=== PATIENT | female | born 1995 | race Caucasian/White ===

== ENCOUNTER 2018-11-21 13:44 | Emergency (ER) | payer OTHER, SELFPAY ==
[2018-11-21 13:45] VITALS: BP 140/69; PULSE 85; RESP 16; TEMP 36.8; O2SAT 99; BMI 40.8
--- NOTE | 2018-11-21 14:05 | ED.DCSUM_ITS ---
- ER Visit Summary Date of Service: 11/21/18 Chief Complaint: Vaginal bleeding History of Present Illness: The patient is a 23 F who presents with vaginal bleeding that has been constant for the past month but became worse today. Patient states the bleeding is severe today. Patient states she is going thr ough approximately 3-4 pads or tampons per hour. Patient denies any lightheadedness or dizziness. Patient denies any abdominal or pelvic pain. Patient states she just has some discomfort. Patient denies any dysuria but admits to some hematuria. Patient denies any back pain. Physical Examination: Vital signs are stable. Patient is afebrile. Patient is in no acute distress. Oral mucosa is pink and moist. Neck is supple. Trachea is midline. There is no JVD noted. Heart was regular rate and rhythm. Lungs are clear and equal bilateral. Abdomen is soft. Bowel sounds are normal. There is no tenderness. There is no guarding noted. Skin is warm dry. Cranial nerves II through XII are intact. There are no focal motor or sensory deficits noted. The remaining physical exam is within normal limits. Test Results: CBC shows a slight anemia with a hemoglobin of 11.7. Basic metabolic profile was normal. Urinalysis shows occult blood of 250 and greater than 100 red blood cells. There is no sign of urinary tract infection. Emergency Department Course and Treatment: She was advised of her lab results. Patient was instructed to follow-up with her [employer]. Patient was given prescriptions for Naprosyn and Provera. Patient was instructed to return if worse in any way. Patient and her family understood and were agreeable with the plan. All questions were answered. Disposition: Discharge home Impression: Menorrhagia This note was generated with [employer] dictation software. It may contain incorrect words, spelling, and punctuation that were not noted in review of the chart prior to signing ED Disposition - Plan for ED Patient: Disposition: Home or Assisted Living Diagnosis: Menorrhagia Instructions: ED Bleeding Menstrual Heavy Prescriptions: Medroxyprogesterone Acetate [Provera] 5 mg PO DAILY #5 tab Naproxen [Naprosyn] 500 mg PO BID PRN #20 tab Referrals: [facility] Doctor,Out of [NON-STAFF] - 3-5 Days
[2018-11-21 14:23] VITALS: BP 132/72; BP 142/74; BP 143/7; PULSE 86; PULSE 89; PULSE 95
[2018-11-21 14:23] LABS: Absolute Lymphocyte Count 2.91 X10^3/ul (0.83-4.51); Absolute Neutrophil Count 8.7 X10^3/uL (2.0-7.7); Basophil# 0.02 X10^3/uL; Basophil% 0.2 % (0-1); Eosinophils% 1.6 % (0-5); Hematocrit 37.9 % (37-47); Hemoglobin 11.7 g/dl (12.0-15.0); Lymphocyte # 2.91 X10^3/ul (4.0); Lymphocyte % 23.3 % (19-41); Mean Corp Hgb Conc 30.9 g/gl (32-36); Mean Corpuscular Hgb 24.7 pg (27.0-32.0); Mean Corpuscular Volume 80.1 fL (81-99); Mean Platelet Vol. 10.4 fl (6.2-12.0); Monocyte# 0.66 X10^3/uL; Monocyte% 5.3 % (0-10); Neutrophil # 8.66 X10^3/uL (2.7-7.7); Neutrophil % 69.3 % (47-70); Platelet Count 335 K/mm3 (150-450); RBC Distribution Width CV 14.9 % (11.6-14.6); RBC Distribution Width SD 42.6 fl (35.1-43.9); Red Blood Count 4.73 M/mm3 (4.2-5.4); White Blood Count 12.5 K/mm3 (4.4-11.0)
[2018-11-21 14:24] LABS: POSITIVE COUNT NO; POSITIVE DIFFERENTIAL NO; POSITIVE MORPHOLOGY NO
[2018-11-21 14:36] LABS: Anion Gap 8 (5-15); BUN 8 mg/dL (7-18); BUN/Creat Ratio 11.3 RATIO (10-20); Calcium,Total 8.5 mg/dL (8.5-10.1); Chloride 107 mmol/L (98-107); Creatinine, Serum 0.71 mg/dL (0.55-1.02); EST Glomerular Filtration Rate 107 mL/min (>60); Est Glom Filt Rate - Afr Amer 130 mL/min (>60); Estimated Creatinine Clearance 109.94 ml/min; Glucose 80 mg/dL (74-106); Potassium 3.5 mmol/L (3.5-5.1); Sodium Level 142 mmol/L (136-145)
[2018-11-21 14:42] LABS: Pregnancy, Serum, hCG Quali. NEGATIVE Negative (0-9 Nonpreg)
[2018-11-21 14:47] LABS: Bacteria 0 SEEN /hpf (None Seen); Mucous, Urine 0 SEEN /hpf (<or=2+); Squamous Epithelial Cells - UA 0 SEEN /hpf (5-10)
[2018-11-21 14:48] LABS: Color, Urine Yellow (Yellow); Glucose, Dipstick Normal (Normal); Ketone-Dipstick Negative (Negative); Leukocyte Esterase-Dipstick 25 /ul (Negative); Nitrite-Dipstick Negative (Negative); Occult Blood-Urine 250 /ul (Negative); Protein-Dipstick 15 mg/dl (Negative); Urine Bilirubin Dipstick Negative (Negative); Urine Clarity Clear (Clear); Urine Urobilinogen Normal (Normal)
[2018-11-21 14:59] LABS: Red Blood Cells-Urine > 100 SEEN /hpf (0-5); White Blood Cells 0-5 SEEN /hpf (0-5)
[2018-11-21 15:52] VITALS: BP 156/82; PULSE 10; PULSE 108; RESP 20; O2SAT 99
== END 2018-11-21 16:01 | disposition home or self-care (01) ==
PROVIDERS: Emergency Provider Emergency Medicine
DX: N92.0 Excessive and frequent menstruation with regular cycle (principal)
CPT/HCPCS: 80048; 81001; 84703; 85025; 99285; A4216

== ENCOUNTER 2021-08-24 14:35 | Emergency (ER) | payer BC, MEDICAID, SELFPAY ==
[2021-08-24 14:36] VITALS: BP 130/78; PULSE 136; RESP 20; TEMP 37.6; O2SAT 91; BMI 40.2
--- NOTE | 2021-08-24 15:40 | CT_ITS ---
STUDY: CTA CHEST REASON FOR EXAM: Female, 26 years old. Covid, hypoxia, evaluate for pulmonary embolus RADIATION DOSAGE (If Supplied By Facility): CTDIvol = ( 12.66 ) mGy, DLP = ( 442.00 ) mGycm TECHNIQUE: The examination was performed with the intravenous administration of IV 100mL Isovue-300. Post-processing of the angiographic images was performed, with multiplanar reformation and 3D reconstruction. Individualized dose optimization techniques were used for this CT. COMPARISON: None. FINDINGS: Normal enhancement of the main pulmonary artery and right and left pulmonary arteries. Normal enhancement of the bilateral peripheral pulmonary arteries. There is no demonstrated pulmonary embolism. Normal thoracic aorta and visualized great vessels. There is no demonstrated aortic dissection. Normal heart and pericardium. Normal mediastinum. Normal hilar regions. Normal visualized trachea and bronchi. The lungs are well expanded. Bilateral patchy groundglass opacities consistent with moderate subsegmental atelectasis or pneumonitis. Normal pleura. Normal chest wall structures. Normal osseous structures. Normal visualized upper abdomen. CT/CTA Chest W/WO Contrast IMPRESSION: 1. No CT evidence of pulmonary embolism. 2. Moderate bilateral subsegmental atelectasis or pneumonitis. Commonly reported imaging features of Cobra 19 pneumonia are present. Other processes such as influenza pneumonia and organizing pneumonia as can be seen in drug toxicity or connective tissue disease can cause a similar imaging pattern. Electronically Signed: Torsten Alonso MD at 17:03 EST Tel , Service support ,
--- NOTE | 2021-08-24 15:41 | EKG12_ITS ---
Test Reason : SOB Blood Pressure : / mmHG Vent. Rate : 111 BPM Atrial Rate : 111 BPM P-R Int : 138 ms QRS Dur : 082 ms QT Int : 306 ms P-R-T Axes : 014 016 022 degrees QTc Int : 416 ms Sinus tachycardia Otherwise normal ECG Confirmed by TULIO RODRIGUEZ, GARTH ([id number]), editor dictionary NETTE FONSECA ([id number]) on 08/27/2021 9:17:54 AM Referred By: CAMMY Confirmed By:GARTH ANTUNEZ MD
--- NOTE | 2021-08-24 15:42 | ED.VIS.DYS ---
HPI History of Present Illness Chief Complaint: Shortness of Breath Informant: patient Narrative Narrative: Patient presents with slightly worsening dyspnea and low O2 saturation at home with known Covid. She started with her Covid symptoms on the 11th of this month. Her symptoms include all of them. I am able to get that she has cough, dyspnea myalgias fever. She also has had nausea and vomiting. She has not been having diarrhea although she had this earlier. She states she is not eating and drinking much. Most of this is due to her lack of interest in food. However, she states is not uncommon she will throw up about 2 hours after eating. No blood has been seen. She has not had hemoptysis. She was treated with antibiotics by somebody recently. She is not on them now. She also has a history of asthma. She has been using inhaler but it does not help her breathing. She has no family or personal history of DVT or PE. No leg swelling. PFSH PFSH Home Medications medroxyprogesterone 5 mg PO DAILY #5 tab 11/21/18 [Rx Last Taken Unknown] naproxen 500 mg PO BID PRN #20 tab 11/21/18 [Rx Last Taken Unknown] Vitamin D (with calcium) 08/24/21 [History Last Taken Unknown] Zoloft 200 mg PO/SL DAILY 08/24/21 [History Last Taken Unknown] albuterol 08/24/21 [History Last Taken Unknown] gabapentin 900 mg PO/SL TID 08/24/21 [History Last Taken Unknown] rituximab 08/24/21 [History Last Taken Unknown] Allergy/AdvReac Type Severity Reaction Status Date / Time cephalexin [From [facility]] Allergy Hives Verified 08/24/21 14:36 Social History Smoking Status: Never smoker [facility] [place] ED Constitutional Constitutional ED: Reports chills, fever(s) and weight loss Eyes Eyes: Denies blurry vision ENT ENT ED: Reports rhinorrhea and sore throat Cardiovascular Cardiovascular: Denies chest pain or palpitations Respiratory/Chest Respiratory/Chest: Reports cough, dyspnea and dyspnea on exertion; Denies sputum Gastrointestinal Gastrointestinal: Reports nausea and vomiting; Denies abdominal pain or diarrhea Genitourinary Genitourinary ED: Denies dysuria Musculoskeletal Musculoskeletal: Reports myalgias Integumentary Denies rash Neurologic Neurologic: Denies headache(s), paresthesias or weakness Psychiatric Psychiatric: Reports anxiety and depression Endocrine Endocrinology: Denies polydipsia or polyuria Hematologic/Lymphatic Hematologic/Lymphatic: Denies easy bleeding or easy bruising Allergic/Immunologic Allergic/Immunologic ED: Denies urticaria EXAM Physical Exam Const Vital Signs: 08/24/21 14:36 08/24/21 15:19 08/24/21 16:20 Temperature 99.7 F H Temperature Source Temporal Pulse Rate 136 H 116 H Respiratory Rate 20 H 17 Respiratory Pattern Normal Normal Blood Pressure 130/78 H Blood Pressure Mean 95 Pulse Ox 91 Oxygen Delivery Method Room Air Patient does look a bit tired. But she does not look dyspneic at this time. Saturations are about 91 to 92% on room air on the monitor. Heart rate currently is about 114. Positive well nourished, well developed and obese General Appearance ED: well developed and NAD Nutritional Appearance: obese HEENT Reports dry mucous membranes atraumatic Mouth ED: Yes dry mucous membranes Mouth: dry mucous membranes Eyes General Eye ED: Negative for pale conjunctiva or scleral icterus Neck no JVD Resp Auscultation: rhonchi; Negative for wheezes Cardio regular rate and regular rhythm GI non-tender and non-distended Palpation: soft Back/Spine no CVA tenderness and normal to inspection Extremity normal to inspection General Extremety ED: Negative for edema or tenderness General Extremity: Negative for edema Neuro oriented x3 Sensorium / Orientation: alert Psych Psych Narrative: Mildly flat affect. Skin Rashes: no rashes MDM MDM Lab Data Attestation: I reviewed the patient's lab results. Labs: Laboratory Results - last 24 hr 08/24/21 08/24/21 16:07 16:07 WBC 4.8 RBC 5.21 Hgb 12.3 Hct 39.0 MCV 74.9 L MCH 23.6 L MCHC 31.5 L RDW Std Deviation 43.8 RDW Coeff of Kaela 16.1 H Plt Count 219 MPV 10.8 Immature Gran % (Auto) 0.800 Neut % (Auto) 70.2 H Lymph % (Auto) 18.6 L [place] % (Auto) 9.6 Eos % (Auto) 0.6 Baso % (Auto) 0.2 Absolute Neuts (auto) 3.4 Absolute Lymphs (auto) 0.89 Nucleated RBC % 0 Sodium 137 Potassium 3.1 L Chloride 104 Carbon Dioxide 25.0 Anion Gap 8 BUN 12 Creatinine 0.94 Estim Creat Clear Calc 80.89 Est GFR (MDRD) Af Amer 92 Est GFR (MDRD) Non-Af 76 BUN/Creatinine Ratio 12.8 Glucose 115 H Calcium 8.2 L EKG Initial EKG: Comments: EKG done for tachycardia and read by me shows sinus rhythm with tachycardic rate at 111. No ventricular ectopy. No acute ST elevation or depression. MI interval, QRS duration and QTc are normal. Discharge Plan Triage Chief Complaint: Shortness of Breath Other Complaint: Fever ED Provider: Marcus Finley Dx/Rx/DC Orders Prescriptions: No Action medroxyprogesterone 5 MG tablet 5 mg PO DAILY Qty: 5 RF: 0 naproxen 500 MG tablet 500 mg PO BID PRN Qty: 20 RF: 0 Vitamin D (with calcium) RF: 0 Zoloft 200 mg PO/SL DAILY RF: 0 gabapentin 900 mg PO/SL TID RF: 0 rituximab RF: 0 albuterol RF: 0 Primary Care Provider: Parvin Damian
[2021-08-24 16:12] LABS: Absolute Lymphocyte Count 0.89 X10^3/uL (0.83-4.51); Absolute Neutrophil Count 3.4 X10^3/uL (2.0-7.7); Basophil# 0.01 X10^3/uL; Basophil% 0.2 % (0-1); Eosinophil# 0.03 X10^3/uL; Eosinophils% 0.6 % (0-5); Hemoglobin 12.3 g/dL (12.0-15.0); Lymphocyte # 0.89 X10^3/ul (0.83-4.51); Lymphocyte % 18.6 % (19-41); Mean Corp Hgb Conc 31.5 g/dL (32-36); Mean Corpuscular Hgb 23.6 pg (27.0-32.0); Mean Corpuscular Volume 74.9 fL (81-99); Mean Platelet Vol. 10.8 fl (6.2-12.0); Monocyte# 0.46 X10^3/uL; Monocyte% 9.6 % (0-10); NRBC Flagged by Analyzer 0 % (0-5); Neutrophil # 3.35 X10^3/uL (2.7-7.7); Neutrophil % 70.2 % (47-70); Platelet Count 219 K/mm3 (150-450); RBC Distribution Width CV 16.1 % (11.6-14.6); RBC Distribution Width SD 43.8 fl (35.1-43.9); Red Blood Count 5.21 M/mm3 (4.2-5.4); White Blood Count 4.8 K/mm3 (4.4-11.0)
[2021-08-24] MEDS: dexAMETHasone 4 MG Tablet 6 MG PO (16:13)
[2021-08-24] MEDS: Ipratropium/Albuterol Sulfate 3 ML AMPUL.NEB INHALATION (16:18)
[2021-08-24 16:20] VITALS: PULSE 116; RESP 17
[2021-08-24 16:24] LABS: Anion Gap 8 (5-15); BUN 12 mg/dL (7-18); BUN/Creat Ratio 12.8 RATIO (10-20); Calcium,Total 8.2 mg/dL (8.5-10.1); Chloride 104 mmol/L (98-107); Creatinine, Serum 0.94 mg/dL (0.55-1.02); EST Glomerular Filtration Rate 76 mL/min (>60); Est Glom Filt Rate - Afr Amer 92 mL/min (>60); Estimated Creatinine Clearance 80.89 ml/min; Glucose 115 mg/dL (74-106); Potassium 3.1 mmol/L (3.5-5.1); Sodium Level 137 mmol/L (136-145)
[2021-08-24] MEDS: Potassium Chloride Oral Tablet 20 MEQ 40 MEQ PO (16:57)
[2021-08-24] MEDS: Ondansetron 4 MG/2 ML Vial IV (16:57)
[2021-08-24 17:00] VITALS: BP 133/55; RESP 24; O2SAT 93
[2021-08-24 19:14] VITALS: O2SAT 95
--- NOTE | 2021-08-24 20:39 | CM.ED ---
SOCIAL WORK Referral Source: Dr. Mancuso Reason for Consult: COVID-19 positive, requires home O2 Patient from [place], [place] and is staying with her parents. Patient requires 2L O2 for home going. Patient in agreement to have O2 set up through [employer]. Patient reports positive COVID-19 test result through work and will obtain copy of positive test result from work tomorrow morning. Nursing informed patient will need to get copy of positive test result to [employer]. Referral called and faxed to [employer], portable tank provided to patient. CM Notified for follow up. Plan: Home with home O2 through [employer] Linda Felipe MSW, RIB CLOTH KNITTER
--- NOTE | 2021-08-27 18:20 | CASEMGMT ---
ИВ[facility]Н [facility] ED COVID Home O2 Follow-up: This [facility]Н ALCAR[facility] contacted pt who states she just returned home from a return visit to the ED. Pt denies any questions or concerns at this time. Will continue to follow. Esteban Concepcion RN CM
--- NOTE | 2021-08-31 15:48 | CASEMGMT ---
[facility] COVID Home O2 Follow-up: This ИВАН ALCARAZ contacted pt via phone for follow-up. Pt states she is feeling better but continues to have some diffculty breathing at times. Pt reports to continue to wear her home O2 at 2l/min and reports her PO to be 92-97% at rest and 90-91% with activity. Pt states she has been lying in the prone position frequently. Pt c/o a productive cough but states it is improved. Pt states she is eating well. Pt was instructed to call her PCP's office back after the new year which she states she will do later this week. Pt denies any further questions or concerns. Esteban Concepcion RN CM
--- NOTE | 2021-09-02 14:16 | CASEMGMT ---
Addendum entered by Dora Modi 09/02/21 14:45: Patient returned call. Patient has been weaning herself off her oxygen. Has been running 96% at rest on room air and 90-91% with activity on room air. Patient has follow-up appts scheduled for tomorrow. Patient had no further questions or concerns at this time. Original Note: ИВ[facility]Н ALCAR[facility] ED COVID Home O2 Follow-up: ИВАН ALCARAZ attempted to complete follow-up phone call. No answer, voice message left with return contact information.
== END 2021-08-24 20:44 | disposition home or self-care (01) ==
PROVIDERS: Emergency Medicine; Emergency Provider Emergency Medicine
DX: R06.02 Shortness of breath (principal); R50.9 Fever, unspecified; Z20.822 Contact with and (suspected) exposure to COVID-19; R11.2 Nausea with vomiting, unspecified; J45.909 Unspecified asthma, uncomplicated; E66.9 Obesity, unspecified; Z79.3 Long term (current) use of hormonal contraceptives; Z79.1 Long term (current) use of non-steroidal anti-inflammatories (NSAID); Z79.899 Other long term (current) drug therapy
CPT/HCPCS: 71275; 80048; 85025; 87426; 87635; 93005; 94640; 96374; 99285; Q9967; U0005; A4216; J2405; U0003

== ENCOUNTER 2021-08-27 13:07 | Emergency (ER) | payer BC, SELFPAY ==
[2021-08-27 13:07] VITALS: BP 140/85; PULSE 106; RESP 26; TEMP 36.4; O2SAT 97; BMI 39.4
[2021-08-27 13:10] VITALS: BP 140/85; PULSE 106; RESP 26; TEMP 36.4; O2SAT 97
--- NOTE | 2021-08-27 13:31 | EKG12_ITS ---
Test Reason : Blood Pressure : / mmHG Vent. Rate : 076 BPM Atrial Rate : 076 BPM P-R Int : 158 ms QRS Dur : 076 ms QT Int : 358 ms P-R-T Axes : 021 031 009 degrees QTc Int : 402 ms Normal sinus rhythm Normal ECG Confirmed by GARTH ANTUNEZ MD ([id number]), editorial cartoonist JUJU PARK ([id number]) on 09/02/2021 12:06:55 PM Referred By: MR Confirmed By:GARTH ANTUNEZ MD
[2021-08-27 14:10] VITALS: BP 140/85; PULSE 106; RESP 26; TEMP 36.4; O2SAT 97
--- NOTE | 2021-08-27 14:10 | RAD_ITS ---
STUDY: X-RAY CHEST REASON FOR EXAM: Female, 26 years old. cough TECHNIQUE: AP COMPARISON: 08/24/2021 FINDINGS: Multifocal infiltrates with features commonly reported with COVID pneumonia. There is no demonstrated pleural abnormality. Normal size heart. Normal mediastinum and stephen. Normal visualized pulmonary arteries. Normal visualized aortic arch and descending thoracic aorta. Normal visualized thoracic spine. Normal visualized ribs, clavicles, and shoulders. There is no demonstrated abnormality of the visualized soft tissue structures of the upper abdomen. RAD/Chest 1 View (Portable) IMPRESSION: Multifocal infiltrates with features commonly reported with COVID pneumonia. Electronically Signed: Frank Hernandez MD (Brooks) at 14:39 EST , Service support ,
[2021-08-27 14:12] LABS: Absolute Lymphocyte Count 0.74 X10^3/uL (0.83-4.51); Absolute Neutrophil Count 7.2 X10^3/uL (2.0-7.7); Basophil# 0.01 X10^3/uL; Basophil% 0.1 % (0-1); Eosinophil# 0.01 X10^3/uL; Eosinophils% 0.1 % (0-5); Hematocrit 38.4 % (37-47); Hemoglobin 12.5 g/dL (12.0-15.0); Lymphocyte # 0.74 X10^3/ul (0.83-4.51); Lymphocyte % 8.4 % (19-41); Mean Corp Hgb Conc 32.6 g/dL (32-36); Mean Corpuscular Volume 73.8 fL (81-99); Mean Platelet Vol. 10.9 fl (6.2-12.0); Monocyte# 0.72 X10^3/uL; Monocyte% 8.2 % (0-10); NRBC Flagged by Analyzer 0 % (0-5); Neutrophil # 7.21 X10^3/uL (2.7-7.7); Neutrophil % 82.3 % (47-70); Platelet Count 282 K/mm3 (150-450); RBC Distribution Width CV 16.3 % (11.6-14.6); RBC Distribution Width SD 43.8 fl (35.1-43.9); White Blood Count 8.8 K/mm3 (4.4-11.0)
[2021-08-27 14:29] LABS: Anion Gap 8 (5-15); BUN 12 mg/dL (7-18); BUN/Creat Ratio 21.4 RATIO (10-20); Calcium,Total 8.8 mg/dL (8.5-10.1); Chloride 109 mmol/L (98-107); Creatinine, Serum 0.56 mg/dL (0.55-1.02); EST Glomerular Filtration Rate 138 mL/min (>60); Est Glom Filt Rate - Afr Amer 167 mL/min (>60); Estimated Creatinine Clearance 135.78 ml/min; Glucose 118 mg/dL (74-106); Potassium 3.8 mmol/L (3.5-5.1); Sodium Level 140 mmol/L (136-145); Troponin-I HS 4 pg/mL (3.0-54.0)
[2021-08-27] MEDS: 0.9% Normal Saline 1,000 ML 1000 ML IV (14:33)
[2021-08-27] MEDS: Benzonatate 100 MG Capsule 200 MG PO (14:34)
--- NOTE | 2021-08-27 15:05 | CT_ITS ---
STUDY: CTA CHEST REASON FOR EXAM: Female, 26 years old. hypoxia, covid RADIATION DOSAGE (If Supplied By Facility): CTDIvol = ( 20.31 ) mGy, DLP = ( 522.73 ) mGycm TECHNIQUE: The examination was performed with the intravenous administration of IV 100mL Isovue-370. Post-processing of the angiographic images was performed, with multiplanar reformation and 3D reconstruction. Individualized dose optimization techniques were used for this CT. COMPARISON: None. FINDINGS: Normal enhancement of the main pulmonary artery and right and left pulmonary arteries. Normal enhancement of the bilateral peripheral pulmonary arteries. There is no demonstrated pulmonary embolism. Normal thoracic aorta and visualized great vessels. There is no demonstrated aortic dissection. Normal heart and pericardium. Normal mediastinum. Normal hilar regions. Normal visualized trachea and bronchi. The lungs are well expanded. Multifocal infiltrates with features commonly reported with COVID pneumonia. Normal pleura. Normal chest wall structures. Normal osseous structures. Normal visualized upper abdomen. CT/CTA Chest W/WO Contrast IMPRESSION: 1. No central or segmental pulmonary embolism. 2. Multifocal infiltrates with features commonly reported with COVID pneumonia. Electronically Signed: Frank Hernandez MD (Brooks) at 15:21 EST , Service support ,
--- NOTE | 2021-08-27 15:59 | ED.VIS.DYS ---
HPI History of Present Illness Chief Complaint: Shortness of Breath Narrative Narrative: Patient presenting for evaluation secondary to worsening shortness of breath. Patient has a underlying history of multiple sclerosis, is on rituximab. Patient started with coronavirus symptoms on the of this month. She was diagnosed as positive, she recently was started on steroids and home supplemental oxygen. Patient has been on 2 L oxygen at home and has been having coughing fits that have caused her to have posttussive emesis. She reports that when she ambulates her oxygen will drop into the 70s. Patient does report that she is also having some chest pain with this. She denies any hemoptysis associated with this. View of systems otherwise negative. [facility] Medical History Asthma Carpal tunnel syndrome of right wrist COVID Depression History of paresthesia Leukocytosis Multiple sclerosis Transverse myelitis Home Medications medroxyprogesterone 5 mg PO DAILY #5 tab 11/21/18 [Rx Last Taken Unknown] naproxen 500 mg PO BID PRN #20 tab 11/21/18 [Rx Last Taken Unknown] Vitamin D (with calcium) 08/24/21 [History Last Taken Unknown] Zoloft 200 mg PO/SL DAILY 08/24/21 [History Last Taken Unknown] albuterol 08/24/21 [History Last Taken Unknown] dexamethasone [Decadron] 6 mg PO DAILY #9 tab 08/24/21 [Rx Last Taken Unknown] gabapentin 900 mg PO/SL TID 08/24/21 [History Last Taken Unknown] rituximab 08/24/21 [History Last Taken Unknown] benzonatate 200 mg PO BID PRN #20 cap 08/27/21 [Rx Last Taken Unknown] Allergy/AdvReac Type Severity Reaction Status Date / Time cephalexin [From Keflex] Allergy Hives Verified 08/27/21 13:10 Social History Smoking Status: Never smoker ROS ROS ED Constitutional Constitutional ED: Reports chills ENT ENT ED: Denies rhinorrhea Cardiovascular Cardiovascular: Reports chest pain Respiratory/Chest Respiratory/Chest: Reports cough and dyspnea Gastrointestinal Gastrointestinal: Reports vomiting Genitourinary Genitourinary ED: Denies dysuria or hematuria Musculoskeletal Musculoskeletal: Denies back pain Integumentary Denies rash Neurologic Neurologic: Denies paresthesias or weakness Psychiatric Psychiatric: Denies depression Endocrine Endocrinology: Denies fatigue Allergic/Immunologic Allergic/Immunologic ED: Denies urticaria EXAM Physical Exam Const Vital Signs: 08/27/21 13:07 08/27/21 13:10 08/27/21 13:36 Temperature 97.6 F L 97.6 F L Temperature Source Temporal Temporal Pulse Rate 106 H 106 H Respiratory Rate 26 H 26 H Respiratory Effort Short of Breath Labored Respiratory Depth Shallow Respiratory Pattern Tachypnea Blood Pressure 140/85 H 140/85 H Blood Pressure Mean 103 103 Pulse Ox 97 97 Oxygen Delivery Method Nasal Cannula Nasal Cannula Oxygen Flow Rate (L/min) 2 2 08/27/21 14:10 08/27/21 15:45 Temperature 97.6 F L Temperature Source Temporal Pulse Rate 106 H Respiratory Rate 26 H Respiratory Effort Respiratory Depth Respiratory Pattern Blood Pressure 140/85 H Blood Pressure Mean 103 Pulse Ox 97 Oxygen Delivery Method Nasal Cannula Nasal Cannula Oxygen Flow Rate (L/min) 2 Positive well nourished and well developed Constitutional Narrative: Well-appearing age-appropriate female frequently coughing otherwise not in physiologic distress General Appearance ED: well developed and NAD HEENT Reports moist mucous membranes Negative for trauma or tenderness Eyes EOMs intact bilaterally Neck no lymphadenopathy, supple and no JVD Chest Wall inspection of chest normal Resp normal respiratory effort and clear to auscultation bilaterally Cardio regular rhythm, no murmurs and peripheral pulses 2+ throughout Rate: tachycardic GI normal to inspection, nondistended, normoactive bowel sounds, non-tender and no masses Palpation: soft Back/Spine normal to inspection Extremity normal to inspection General Extremety ED: Negative for tenderness Neuro oriented x3 and no sensory deficits noted Sensorium / Orientation: alert Motor Exam: strength 5/5 throughout Psych mental status grossly normal Skin no rashes or lesions noted MDM MDM MDM Narrative Medical decision making narrative: Patient presented secondary to reported worsening hypoxia in the setting of recovering coronavirus. She was saturating normally in the emergency department but reported that she was going down into the 70s. Work-up was obtained. CBC unremarkable, chemistry shows the patient to continue to be well hydrated high-sensitivity troponin was negative D-dimer unfortunately was elevated. CT angiogram of the chest was performed which shows the patient's multifocal infiltrates but no evidence of pulmonary emboli. Patient was given a liter of fluid as well as Tessalon Perles. Patient remained stable in the emergency department. Patient was ambulated on her home oxygen and maintain oxygen saturations at 94%. I do believe that the patient is still appropriate for outpatient management of coronavirus, she was recommended to continue her steroids, and she will be given information on self proning. Patient will be sent home with Joelle Silva. Patient was discharged in stable condition. Lab Data Labs: Laboratory Results - last 24 hr 08/27/21 08/27/21 08/27/21 14:00 14:00 14:00 WBC 8.8 RBC 5.20 Hgb 12.5 Hct 38.4 MCV 73.8 L MCH 24.0 L MCHC 32.6 RDW Std Deviation 43.8 RDW Coeff of Kaela 16.3 H Plt Count 282 MPV 10.9 Immature Gran % (Auto) 0.900 Neut % (Auto) 82.3 H Lymph % (Auto) 8.4 L [place] % (Auto) 8.2 Eos % (Auto) 0.1 Baso % (Auto) 0.1 Absolute Neuts (auto) 7.2 Absolute Lymphs (auto) 0.74 L Nucleated RBC % 0 D-Dimer Quant (PE/DVT) 0.80 H* Sodium 140 Potassium 3.8 Chloride 109 H Carbon Dioxide 23.0 Anion Gap 8 BUN 12 Creatinine 0.56 Estim Creat Clear Calc 135.78 Est GFR (MDRD) Af Amer 167 Est GFR (MDRD) Non-Af 138 BUN/Creatinine Ratio 21.4 H Glucose 118 H Calcium 8.8 Troponin I High Sens 4 Radiography Chest X-Ray - ED: 1 View, Read by ED Physician, Right Infiltrate and Left Infiltrate Diagnostic Testing: Clinical Impression(s) from Imaging Studies Chest X-Ray 08/27/21 14:10 IMPRESSION: Multifocal infiltrates with features commonly reported with COVID pneumonia. Electronically Signed: Frank Hernandez MD (Brooks) at 14:39 EST , Service support , Chest CTA 08/27/21 15:05 IMPRESSION: 1. No central or segmental pulmonary embolism. 2. Multifocal infiltrates with features commonly reported with COVID pneumonia. Electronically Signed: Frank Hernandez MD (Brooks) at 15:21 EST , Service support , Discharge Plan Triage Chief Complaint: Shortness of Breath ED Provider: Huseyin Barnes Dx/Rx/DC Orders Clinical Impression: COVID-19 Instructions: COVID-19: Lying in a Prone Position (Proning) Prescriptions: New benzonatate 200 mg capsule 200 mg PO BID PRN (Reason: cough) Qty: 20 RF: 0 No Action medroxyprogesterone 5 MG tablet 5 mg PO DAILY Qty: 5 RF: 0 naproxen 500 MG tablet 500 mg PO BID PRN Qty: 20 RF: 0 Vitamin D (with calcium) RF: 0 Zoloft 200 mg PO/SL DAILY RF: 0 gabapentin 900 mg PO/SL TID RF: 0 rituximab RF: 0 albuterol RF: 0 dexamethasone [Decadron] 6 mg tablet 6 mg PO DAILY Qty: 9 RF: 0 Primary Care Provider: Parvin Damian Referrals: Parvin Damian DO [Primary Care Provider] - 3-5 Days Disposition Disposition: Home, Self Care
[2021-08-27 16:00] VITALS: O2SAT 98
[2021-08-27 16:52] VITALS: BP 133/73; PULSE 81; RESP 24; O2SAT 97
--- NOTE | 2021-08-27 16:53 | ED.RN ---
THIS NURSE REVIEWED D/C INSTRUCTIONS WITH PT AND VISITOR. BOTH VERBALIZED UNDERSTANDING OF INSTRUCTIONS. IV D/C. IV CATHETER INTACT. PT TOLERATED WELL. PT DENIES ANY FURTHER QUESTIONS.
== END 2021-08-27 16:54 | disposition home or self-care (01) ==
PROVIDERS: Emergency Provider Emergency Medicine
DX: U07.1 COVID-19 (principal); R11.10 Vomiting, unspecified; G35 Multiple sclerosis; J45.909 Unspecified asthma, uncomplicated; F32.A Depression, unspecified; Z79.3 Long term (current) use of hormonal contraceptives; Z79.52 Long term (current) use of systemic steroids; Z79.899 Other long term (current) drug therapy
CPT/HCPCS: 71045; 71275; 80048; 84484; 85025; 85379; 93005; 96360; 96361; 99285; J7030; Q9967; A4216